=== PATIENT | female | born 1970 | race African-American/Black ===

== ENCOUNTER → 2016-03-02 | Outpatient (CLI) | payer BC | LOC: M LAB 09:22 | DX: R76.11 Nonspecific reaction to tuberculin skin test without active tuberculosis (principal) ==

== ENCOUNTER → 2016-03-02 | Outpatient (CLI) | payer BC ==
--- NOTE | 2016-03-09 15:26 | REP ---
DIGITAL SCREENING MAMMOGRAPHY WITH CAD: Comparison prior mammography is retrieved dated December 29, 2012 from [facility] in [place], [place]. FINDINGS: There is a nodular neodensity projecting at the 12 o'clock position in the left breast 10 mm in greatest diameter which merits further evaluation. This is a new finding. Scattered fibroglandular elements are otherwise noted bilaterally. No worrisome skin change is seen. No architectural distortion or microcalcification is seen. IMPRESSION: BIRADS category 0 incomplete breast imaging. 1 cm nodular neodensity at 12 o'clock position in the left breast. Diagnostic left breast mammography and focused left breast sonography is recommended. BI-RADS/ACR category 0 mammogram, incomplete. Additional imaging and/or prior images are needed before a final assessment can be assigned. This mammogram was interpreted with the aid of an FDA-approved computer-aided detection system. The patient states she/he had a clinical breast exam in February 2016. The patient letter being requested is M0. Signed by Jonathon Del Valle MD 03/09/2016 05:14 P
== END ==
LOC: M RAD 09:12
PROVIDERS: ATTEND Family Medicine
DX: R92.2 Inconclusive mammogram (principal); Z12.4 Encounter for screening for malignant neoplasm of cervix; B37.3 Candidiasis of vulva and vagina
CPT/HCPCS: G0123; G0202

== ENCOUNTER → 2016-04-06 | Outpatient (CLI) | payer BC ==
--- NOTE | 2016-04-06 11:25 | REP ---
Clinical: Myomatous uterus with abnormal uterine bleeding . Technique: Transabdominal pelvic ultrasound followed by transvaginal examination for better evaluation of the endometrium and adnexa with color Doppler evaluation of the ovaries. Findings: Bladder is unremarkable and measures 6.3 x 5.1 x 2.7 cm . Enlarged myomatous uterus measures 12.1 x 7.6 x 9.9 cm. Multiple partially calcified degenerating fibroids are identified. Largest fibroid measures 6.7 cm and is posterolateral and partially exophytic. A second fibroid measures 6.7 cm maximal diameter and is posterolateral and intramural along the left side of the uterus. Third discrete fibroid measures 1.8 cm along the right side intramurally located. The endometrial complex measures 10.2 mm thickness and the 2.2 x 2.2 x 0.7 cm endometrial polyp is identified with small amount of adjacent endocervical fluid. Bilateral ovaries are normal in appearance and vascularity without evidence for torsion. Right ovary measures 3.1 x 2.4 x 1.5 cm ; R I = 0.52 . Left ovary measures 2.8 x 2.5 x 1.7 cm ; R I = 0.41 . Trace pelvic free fluid is nonspecific. No adnexal mass lesion. Impression: 1. Heterogeneous enlarged myomatous uterus with multiple degenerating partially calcified fibroids. 2. A 2.2 cm endometrial polyp. Signed by Benson Kenny MD 04/06/2016 11:17 A
--- NOTE | 2016-04-06 11:42 | REP ---
DIAGNOSTIC DIGITAL LEFT MAMMOGRAM: 04/06/2016. Comparison: Left breast ultrasound this date, screening mammogram 03/02/2016, outside mammogram 12/29/2012. Clinical history: New nodular density noon position left breast for diagnostic mammogram and ultrasound. Findings: CC, spot magnified ML and left MLO views were obtained. At the noon position of the left breast, there is a persistent nodule 9 mm in greatest diameter. Most of its margins are seen and fairly well defined with some margins partially obscured by parenchyma. No abnormal calcifications. There are no clustered microcalcifications, skin thickening or other secondary signs of malignancy. Left breast ultrasound this date shows a 9 x 6 x 6 mm nodule with internal echoes and relatively poor through transmission. There is no color flow within it on ultrasound. Impression: 1. BIRADS ACR category 4 suspicious abnormality. Biopsy usually required. Ultrasound-guided biopsy would be suggested for this persistent new nodule left breast noon position. Sonographic confirmation that this is not a simple cyst. It may be solid nodule or complex cyst. BI-RADS/ACR category 4 mammogram. Suspicious abnormality - biopsy should be considered. Usually requires biopsy. The patient states she had a clinical breast exam in A. Negative x-ray reports should not delay biopsy if a dominant or clinically suspicious mass is present. B. Four to eight percent of cancers are not identified by x-ray. C. Adenosis and dense breasts may obscure an underlying neoplasm. The patient states she had a clinical breast exam in 02/2016. The patient letter being requested is M4. Signed by Ludin Garcia MD 04/06/2016 05:18 P
--- NOTE | 2016-04-06 11:49 | REP ---
LEFT BREAST ULTRASOUND: 04/06/2016. Clinical history: Persistent nodule noon position left breast. Comparison: Diagnostic mammogram today, screening mammogram 03/02/2016. Findings: In the noon position left breast there is a hypoechoic nodule with internal echoes and measuring 9 x 6 x 6 mm, it is 3.6 cm from the nipple. There is no color flow within it. There is color flow adjacent to it. There is some relatively poor through transmission but no back wall enhancement. No other findings. Impression: 1. Hypoechoic 9 x 6 x 6 mm nodule in the left breast at the noon position, solid versus complex cyst. No definite color flow within it. Please see mammogram report this date for final assessment and recommendation. Signed by Ludin Garcia MD 04/06/2016 05:18 P
== END ==
LOC: M RAD 09:45
PROVIDERS: ATTEND Family Medicine
DX: N63 Unspecified lump in breast (principal); R92.2 Inconclusive mammogram; D25.9 Leiomyoma of uterus, unspecified; N84.0 Polyp of corpus uteri; D64.9 Anemia, unspecified; Z86.018 Personal history of other benign neoplasm
CPT/HCPCS: 76642; 76830; 76856; 93976; G0206

== ENCOUNTER → 2016-05-01 | Outpatient (CLI) | payer BC ==
[~2016-05-01] MED LIST: LIDOCAINE 1% MDV 20ML VIAL As Ordered ONE
--- NOTE | 2016-05-01 10:51 | REP ---
Digital diagnostic unilateral left breast mammography: Two views. History: Marker clip placement views. The patient is status post ultrasound-guided needle biopsy of a nodular lesion seen in the left breast on mammography from April 06, 2016 and sonography from this same date. Findings: Craniocaudal and true MLO views of the left breast demonstrate that the needle biopsy marker clip is in good position within the remaining portion of the nodule which was observed in the superior and slightly medial aspect of the left breast on prior mammography. There is no evidence of hematoma. Impression: Marker clip in good position. Signed by Jonathon Del Valle MD 05/01/2016 01:59 P
--- NOTE | 2016-05-01 14:19 | REP ---
ULTRASOUND GUIDED LEFT BREAST BIOPSY: The procedure was performed under the direct supervision of Dr. Del Valle. The patient has a history of a 9 x 6 x 6 mm nodule in the left breast at the noon position seen on a previous ultrasound dated 04/06/2016. The risks and benefits of the procedure were explained to the patient and informed consent was obtained. The left breast nodule was localized using ultrasound guidance. The skin was prepped and draped in a sterile fashion. 1% Xylocaine was used as a local anesthetic. Using ultrasound guidance a 13-gauge suction assisted Mammotome needle was inserted and six core biopsy samples were obtained. A marker clip was placed at the biopsy site. The patient tolerated the procedure well and there were no immediate complications. After the appropriate amount of monitored convalescence the patient was discharged from the department. Reviewed by DOUGLAS Starks 05/01/2016 04:47 PEdited and Signed by Jonathon Del Valle MD 05/01/2016 05:02 P
== END ==
LOC: M RADPRO 07:47
PROVIDERS: ATTEND Surgery
DX: D24.2 Benign neoplasm of left breast (principal)
CPT/HCPCS: 19083; 88305; G0206